=== PATIENT | female | born 1995 | race Caucasian/White ===

== ENCOUNTER 2016-09-28 07:17 | Inpatient (IN) | payer MEDICAID ==
[2016-09-28] MEDS ORDERED: Misoprostol 50 MCG (1/2 of 100 MCG) Tab ONE (08:15)
[2016-09-28] MEDS ORDERED: Lactated Ringers 1,000 ML IV SCH (08:15)
[2016-09-28] MEDS ORDERED: Misoprostol 50 MCG (1/2 of 100 MCG) Tab VAG ONE (08:22)
[2016-09-28] MEDS ORDERED: Acetaminophen 325 MG Tab PO PRN (08:29)
[2016-09-28] MEDS ORDERED: Ondansetron 4 MG Tab.DIS PO PRN (08:29)
[2016-09-28] MEDS ORDERED: fentaNYL 100 MCG/2 ML SDV IVPUSH PRN (08:29)
[2016-09-28] MEDS ORDERED: Sodium Chloride 0.9% 10 ML Syringe FLUSH PRN (08:29)
--- NOTE | 2016-09-28 08:41 | PCM.LDHP ---
L&D History of Present Illness - General Date of Service: 09/28/16 (induction) Admit Problem/Dx: Patient Status Order with Admit Dx/Problem 09/28/16 08:29 Patient Status [ADT] Routine Admission Diagnosis/Problem Admission Diagnosis/Problem Source of Information: Patient History Limitations: Reports: No Limitations - History of Present Illness Introduction:: This who is 40 1/7 weeks gestation presents for planned induction at 40 weeks. cervical exam /-2 bloody show. Contractions present but not uncomfortable. 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: : 2 Para: 1 LMP (Approximate): (09/27/16) Social & Family History - Family History Family Medical History: Noncontributory - Tobacco Use Smoking Status *Q: Never Smoker Second Hand Smoke Exposure: No - Caffeine Use Caffeine Use: Reports: Coffee - Alcohol Use Days Per Week of Alcohol Use: 0 - Recreational Drug Use Recreational Drug Use: No H&P Review of Systems - Review of Systems: Review Of Systems: See Below General: Reports: No Symptoms HEENT: Reports: No Symptoms Pulmonary: Reports: No Symptoms Cardiovascular: Reports: No Symptoms Gastrointestinal: Reports: No Symptoms Genitourinary: Reports: No Symptoms Musculoskeletal: Reports: No Symptoms Skin: Reports: No Symptoms Psychiatric: Reports: No Symptoms Neurological: Reports: No Symptoms Hematologic/Lymphatic: Reports: No Symptoms Immunologic: Reports: No Symptoms L&D Exam - Exam Exam: See Below - Vital Signs Vital Signs: Last Vital Signs Temp 99.2 F 09/28/16 07:45 Pulse 84 09/28/16 08:15 Resp 18 09/28/16 08:15 BP 108/66 09/28/16 08:15 Pulse Ox 94 L 09/28/16 08:15 Weight: 155 lb - OB Specific Contraction Duration (sec): 30-60 Contraction Frequency (min): irritability Contraction Intensity: Mild Heart Rate (FHR) Variability: Moderate (6-25 bmp) Presentation: Vertex Estimated Weight: 7 lbs - Mora Score Mora Score Cervix Position: Midposition Mora Score Consistency: Soft Mora Score Effacement: 51-70% Mora Score Dilation: 1-2 cm Mora Score Infant's Station: -2 Mora Score Total: 7 - Exam General: Alert, Oriented HEENT: PERRLA, Hearing Intact, Mucosa Moist & [place], Pupils Equal Neck: Supple, Trachea Midline Lungs: Clear to Auscultation, Normal Respiratory Effort Cardiovascular: Regular Rate, Regular Rhythm Abdomen: Normal Bowel Sounds, Soft, Pelvis Stable Rectal Exam: Normal Exam Genitourinary: Normal external exam, Cervical dilitation, Enlarged uterus Back Exam: Normal Inspection Extremities: Normal Inspection Skin: Warm, Dry, Intact Neurological: Cranial Nerves Intact, Reflexes Equal Bilateral Psychiatric: Alert, Normal Affect, Normal Mood - Patient Data Lab Results Last 24 hrs: Laboratory Results - last 24 hr 09/28/16 09/28/16 Range/Units 08:05 08:14 WBC 6.8 (4.5-11.0) K/uL RBC 3.93 (3.30-5.50) M/uL Hgb 9.1 L (12.0-15.0) g/dL Hct 30.0 L (36.0-48.0) % MCV 76 L (80-98) fL MCH 23 L (27-31) pg MCHC 30 L (32-36) % Plt Count 273 (150-400) K/uL Urine Opiates Screen Negative (NEGATIVE) Ur Oxycodone Screen Negative (NEGATIVE) Urine Methadone Screen Negative (NEGATIVE) Ur Propoxyphene Screen Negative (NEGATIVE) Ur Barbiturates Screen Negative (NEGATIVE) Ur Tricyclics Screen Negative (NEGATIVE) Ur Phencyclidine Scrn Negative (NEGATIVE) Ur Amphetamine Screen Negative (NEGATIVE) U Methamphetamines Scrn Negative (NEGATIVE) Urine MDMA Screen Negative (NEGATIVE) U Benzodiazepines Scrn Negative (NEGATIVE) U Cocaine Metab Screen Negative (NEGATIVE) U Marijuana (THC) Screen Negative (NEGATIVE) Result Diagrams: 09/28/16 08:14 - Problem List (1) Elective induction of labor planned SNOMED Code(s): 304809381 ICD Code: [id number] - Status: Acute Current Visit: Yes (2) SNOMED Code(s): 36087532 ICD Code: Z33.1 - STATE, INCIDENTAL Status: Acute Current Visit : Yes Qualifiers: Weeks of gestation: 40 weeks Qualified Code(s): Z3A.40 - 40 weeks gestation of Problem List Initiated/Reviewed/Updated: Yes Orders Last 24hrs: Active Orders 24 hr Category Date Time Status Patient Status [ADT] Routine ADT 09/28/16 08:29 Ordered Antiembolic Devices [RC] .Routine Care 09/28/16 08:32 Ordered Communication Order [RC] ASDIRECTED Care 09/28/16 08:29 Ordered Heart Tones [RC] PER UNIT ROUTINE Care 09/28/16 08:29 Ordered May Shower [RC] ASDIRECTED Care 09/28/16 08:29 Ordered Notify Provider Vital Signs [RC] PRN Care 09/28/16 08:29 Ordered Notify Provider [RC] PRN Care 09/28/16 08:29 Ordered Up ad Catia [RC] ASDIRECTED Care 09/28/16 08:29 Ordered VTE/DVT Education [RC] Click to Edit Care 09/28/16 08:32 Ordered Vital Signs [RC] PER UNIT ROUTINE Care 09/28/16 08:29 Ordered Acetaminophen [Tylenol] Med 09/28/16 08:29 Ordered 650 mg PO Q4H PRN Lactated Ringers [Ringers, Lactated] 1,000 ml Med 09/28/16 08:15 Active IV BOLUS Ondansetron [Zofran ODT] Med 09/28/16 08:29 Ordered 4 mg PO Q4H PRN Oxytocin/Normal Saline [Pitocin in NS 20 Units/1,000 ML Med 09/28/16 08:45 Ordered ] 1,000 ml IV TITRATE Sodium Chloride 0.9% [Saline Flush] Med 09/28/16 08:29 Ordered 10 ml FLUSH ASDIRECTED PRN fentaNYL [Sublimaze] Med 09/28/16 08:29 Ordered 100 mcg IVPUSH Q1H PRN DVT/VTE Prophylaxis Reflex [OM.PC] Routine Oth 09/28/16 08:29 Ordered Saline Lock Insert [OM.PC] Routine Oth 09/28/16 08:29 Ordered Resuscitation Status Routine Resus Stat 09/28/16 08:29 Ordered Medication Orders Acetaminophen (Tylenol) 650 mg PO Q4H PRN PRN Reason: Pain (Mild 1-3) and fever Fentanyl (Sublimaze) 100 mcg IVPUSH Q1H PRN PRN Reason: Pain (moderate 4-6) Lactated Ringer's (Ringers, Lactated) 1,000 mls @ 999 mls/hr IV BOLUS KELLIE Last Admin: 09/28/16 08:25 Dose: 999 mls/hr Oxytocin/Sodium Chloride (Pitocin In Ns 20 Units/1,000 Ml) 1,000 mls @ 6 mls/ hr IV TITRATE KELLIE; 2 MUNITS/MIN PRN Reason: Protocol Ondansetron HCl (Zofran Odt) 4 mg PO Q4H PRN PRN Reason: Nausea/Vomiting Sodium Chloride (Saline Flush) 10 ml FLUSH ASDIRECTED PRN PRN Reason: Keep Vein Open Assessment/Plan Comment:: 21 year old who is 40 1/7 cat one strip favorable cervix Misoprostol 50 MCG vaginally monitor for active labor up and about august far light meals
--- NOTE | 2016-09-28 12:05 | PCM.PNLD ---
Labor Progress Note - VS & Meds Vital Signs: Last Vital Signs Temp 99.2 F 09/28/16 07:45 Pulse 78 09/28/16 09:15 Resp 18 09/28/16 09:15 BP 101/71 09/28/16 08:45 Pulse Ox 95 09/28/16 09:15 Active Medications: Current Medications Acetaminophen (Tylenol) 650 mg PO Q4H PRN PRN Reason: Pain (Mild 1-3) and fever Fentanyl (Sublimaze) 100 mcg IVPUSH Q1H PRN PRN Reason: Pain (moderate 4-6) Lactated Ringer's (Ringers, Lactated) 1,000 mls @ 999 mls/hr IV BOLUS KELLIE Last Admin: 09/28/16 08:25 Dose: 999 mls/hr Oxytocin/Sodium Chloride (Pitocin In Ns 20 Units/1,000 Ml) 20 unit in 1,000 mls @ 6 mls/hr IV TITRATE KELLIE; 2 MUNITS/MIN PRN Reason: Protocol Ondansetron HCl (Zofran Odt) 4 mg PO Q4H PRN PRN Reason: Nausea/Vomiting Sodium Chloride (Saline Flush) 10 ml FLUSH ASDIRECTED PRN PRN Reason: Keep Vein Open Discontinued Medications Misoprostol (Cytotec) Confirm Administered Dose 50 mcg .ROUTE .STK-MED ONE Stop: 09/28/16 08:16 Last Admin: 09/28/16 08:25 Dose: 50 mcg Misoprostol (Cytotec) 50 mcg VAG ONETIME ONE Stop: 09/28/16 08:23 Last Admin: 09/28/16 10:00 Dose: Not Given - Uterine Contractions Uterine Monitoring Mode: External [place] Contraction Frequency (min): 1-1.5 Contraction Duration (sec): 30-50 Contraction Intensity: Moderate Uterine Resting Tone: Soft - Monitoring Monitor Mode: Doppler/Auscultation Heart Rate (FHR) Baseline: 145 Heart Rate (FHR) Variability: Moderate (6-25 bmp) Accelerations: Present, 15x15 Decelerations: None Strip Review: Category I - Vaginal Exam Dilation (cm): 4-5 Effacement (Percent): 80 Station: 0 Cervical Position: Anterior Sterile Vaginal Exam Performed By: Demetra Jade Vaginal Exam Comment: AROM meconium - Labor Progress (Free Text) Labor Progress: Nice progress since this morning. Active labor epidural at 6 cm
[2016-09-28] MEDS ORDERED: Lidocaine 1% 50 ML MDV ONE (12:34)
[2016-09-28] MEDS ORDERED: Oxytocin 10 Units/1 ML SDV ONE (12:34)
[2016-09-28] MEDS ORDERED: Naloxone 0.4 MG/ML SDV ONE (12:34)
[2016-09-28] MEDS ORDERED: Docusate Sodium 100 MG Cap PO PRN (13:57)
--- NOTE | 2016-09-28 14:13 | PCM.DEL ---
L & D Note - General Info Date of Service: 09/28/16 (Delivery) Mother's Due Date: 09/27/16 - Delivery Note Labor: spontaneous Cervical Ripening Method: Misoprostil Delivery Outcome: Livebirth Infant Delivery Method: Spontaneous Vaginal Delivery Delivery Mode: Spontaneous Presentation: Vertex Nuchal Cord: None Anesthesia Type: None Amniotic Fluid Description: Meconium stained Episiotomy Type: None Laceration: none Placenta: intact, spontaneous Cord: 3 vessels Resuscitation Needed: No : Bulb Syringe, Stimulated, Warmed Provider: Demetra Jade Score 1 min: 8 Score 5 min: 9 Score 10 min: 9 Post Delivery Events: Shoulder Dystocia Second Stage Interventions: Reports: Encouragement Given, Pushing Effectively, Pushing Involuntarily, Pushing, McRobert's Position Delivery Comments (Free Text/Narrative):: This 21 year old G2 Now P2 40 1/7 weeks delivered at [address] in [facility] with shoulder dystoica which was relieved with Mc Kevan's and supra pubic pressure. No nuchal cord, three vessel cord. The placenta was expressed spontaneously intact. Active management of the third stage was used. No tears or repairs needed. No lacerations of the perineum, vagina, rectum or cervix. EBL 100 Mother and baby to nursery and post in stable condition Induction Criteria - Mora Score Mora Score Dilation: 1-2 cm Mora Score Effacement: 60-70% Mora Score Infant's Station: -1 ,0 Mora Score Consistency: Soft Mora Score Cervix Position: Midposition Mora Score Total: 8 Mora Score Presenting Part: Reports: Cephalic - Induction Gestational Age >/= 39 wks: Yes Estimated pelvis: Reports: Adequate Reassuring monitoring strip: Yes Absence of tachy systole: Yes - Augmentation Estimated Pelvis: Reports: Adequate weight estimated:: Reports: AGA - General Info Date of Service: 09/28/16 (delivery) Admission Dx/Problem (Free Text): Patient Status Order with Admit Dx/Problem 09/28/16 08:29 Patient Status [ADT] Routine Admission Diagnosis/Problem Admission Diagnosis/Problem Functional Status: Reports: pain controlled - Review of Systems General: Reports: No Symptoms HEENT: Reports: no symptoms Pulmonary: Reports: no symptoms Cardiovascular: Reports: No Symptoms Gastrointestinal: Reports: No symptoms Genitourinary: Reports: no symptoms Musculoskeletal: Reports: no symptoms Skin: Reports: no symptoms Neurological: Reports: No Symptoms Psychiatric: Reports: no symptoms - Patient Data Vitals - most recent: Last Vital Signs Temp 99.1 F 09/28/16 12:25 Pulse 80 09/28/16 12:25 Resp 18 09/28/16 12:25 BP 117/67 09/28/16 12:25 Pulse Ox 95 09/28/16 12:25 Weight - most recent: 155 lb I&O - last 24 hours: Intake & Output 09/27/16 09/28/16 09/28/16 22:59 06:59 14:59 Intake Total 500 Balance 500 Lab Results last 24 hrs: Laboratory Results - last 24 hr 09/28/16 09/28/16 09/28/16 Range/Units 08:05 08:14 08:36 WBC 6.8 (4.5-11.0) K/uL RBC 3.93 (3.30-5.50) M/uL Hgb 9.1 L (12.0-15.0) g/dL Hct 30.0 L (36.0-48.0) % MCV 76 L (80-98) fL MCH 23 L (27-31) pg MCHC 30 L (32-36) % Plt Count 273 (150-400) K/uL Urine Color Yellow Urine Appearance Cloudy Urine pH 8.0 (4.5-8.0) Ur Specific [place] 1.015 (1.008-1.030) Urine Protein Negative (NEGATIVE) mg/dL Urine Glucose (UA) Normal (NEGATIVE) mg/dL Urine Ketones Negative (NEGATIVE) mg/dL Urine Occult Blood Negative (NEGATIVE) Urine Nitrite Negative (NEGATIVE) Urine Bilirubin Negative (NEGATIVE) Urine Urobilinogen Normal (NORMAL) mg/dL Ur Leukocyte Esterase Large (NEGATIVE) Urine RBC 0-5 (0-5) Urine WBC 30-40 H (0-5) Ur Epithelial Cells Many Amorphous Sediment Not seen Urine Bacteria Many Urine Mucus Not seen Urine Opiates Screen Negative (NEGATIVE) Ur Oxycodone Screen Negative (NEGATIVE) Urine Methadone Screen Negative (NEGATIVE) Ur Propoxyphene Screen Negative (NEGATIVE) Ur Barbiturates Screen Negative (NEGATIVE) Ur Tricyclics Screen Negative (NEGATIVE) Ur Phencyclidine Scrn Negative (NEGATIVE) Ur Amphetamine Screen Negative (NEGATIVE) U Methamphetamines Scrn Negative (NEGATIVE) Urine MDMA Screen Negative (NEGATIVE) U Benzodiazepines Scrn Negative (NEGATIVE) U Cocaine Metab Screen Negative (NEGATIVE) U Marijuana (THC) Screen Negative (NEGATIVE) Med Orders - Current: Current Medications Acetaminophen (Tylenol) 650 mg PO Q4H PRN PRN Reason: Pain (Mild 1-3) and fever Docusate Sodium (Colace) 100 mg PO BID PRN PRN Reason: Constipation Fentanyl (Sublimaze) 100 mcg IVPUSH Q1H PRN PRN Reason: Pain (moderate 4-6) Lactated Ringer's (Ringers, Lactated) 1,000 mls @ 999 mls/hr IV BOLUS KELLIE Last Admin: 09/28/16 08:25 Dose: 999 mls/hr Oxytocin/Sodium Chloride (Pitocin In Ns 20 Units/1,000 Ml) 20 unit in 1,000 mls @ 6 mls/hr IV TITRATE KELLIE; 2 MUNITS/MIN PRN Reason: Protocol Ondansetron HCl (Zofran Odt) 4 mg PO Q4H PRN PRN Reason: Nausea/Vomiting Sodium Chloride (Saline Flush) 10 ml FLUSH ASDIRECTED PRN PRN Reason: Keep Vein Open Discontinued Medications Oxytocin/Sodium Chloride (Pitocin In Ns 20 Units/1,000 Ml) Confirm Administered Dose 20 unit in 1,000 mls @ as directed .ROUTE .STK-MED ONE Stop: 09/28/16 12:36 Last Admin: 09/28/16 12:40 Dose: Not Given Lidocaine HCl (Xylocaine 1%) Confirm Administered Dose 100 ml .ROUTE .STK-MED ONE Stop: 09/28/16 12:35 Misoprostol (Cytotec) Confirm Administered Dose 50 mcg .ROUTE .STK-MED ONE Stop: 09/28/16 08:16 Last Admin: 09/28/16 08:25 Dose: 50 mcg Misoprostol (Cytotec) 50 mcg VAG ONETIME ONE Stop: 09/28/16 08:23 Last Admin: 09/28/16 10:00 Dose: Not Given Naloxone HCl (Narcan) Confirm Administered Dose 0.4 mg .ROUTE .STK-MED ONE Stop: 09/28/16 12:35 Oxytocin (Pitocin) Confirm Administered Dose 10 unit .ROUTE .STK-MED ONE Stop: 09/28/16 12:35 - Exam General: alert, oriented HEENT: Pupils equal, Pupils reactive, EOMI, Mucous membr. moist/pink Neck: supple Lungs: Clear to auscultation, Normal respiratory effort Cardiovascular: Regular Rate, Regular Rhythm Abdomen: bowel sounds present, soft, no tenderness, no distension (Female) Exam: Normal External Exam, Normal Speculum Exam, Normal Bimanual Exam, Enlarged Uterus, Vaginal Bleeding Back Exam: Normal Inspection, Full Range of Motion Extremities: no edema Skin: warm, dry, intact Wound/Incisions: healing well Neurological: no new focal deficit Psy/Mental Status: alert, normal affect, normal mood - Problem List & Annotations (1) Elective induction of labor planned SNOMED Code(s): 785400332 Code(s): FDQ4199 - Status: Acute Current Visit: Yes (2) SNOMED Code(s): 64283721 Code(s): Z33.1 - STATE, INCIDENTAL Status: Acute Current Visit: Yes Qualifiers: Weeks of gestation: 40 weeks Qualified Code(s): Z3A.40 - 40 weeks gestation of (3) Vaginal delivery SNOMED Code(s): 223709664 Code(s): O80 - ENCOUNTER FOR FULL-TERM UNCOMPLICATED DELIVERY Status: Acute Current Visit: Yes (4) Meconium staining SNOMED Code(s): 380972567, 445889843 Code(s): P96.83 - MECONIUM STAINING Status: Acute Current Visit: Yes - Problem List Review Problem List Initiated/Reviewed/Updated: Yes - My Orders Last 24 Hours: My Active Orders 09/28/16 08:29 Communication Order [RC] ASDIRECTED May Shower [RC] ASDIRECTED Notify Provider Vital Signs [RC] PRN Notify Provider [RC] PRN Up ad Catia [RC] ASDIRECTED Vital Signs [RC] PER UNIT ROUTINE Acetaminophen [Tylenol] 650 mg PO Q4H PRN Ondansetron [Zofran ODT] 4 mg PO Q4H PRN Sodium Chloride 0.9% [Saline Flush] 10 ml FLUSH ASDIRECTED PRN fentaNYL [Sublimaze] 100 mcg IVPUSH Q1H PRN DVT/VTE Prophylaxis Reflex [OM.PC] Routine Saline Lock Insert [OM.PC] Routine Resuscitation Status Routine 09/28/16 08:32 Antiembolic Devices [RC] .Routine VTE/DVT Education [RC] Click to Edit 09/28/16 08:45 Oxytocin/Normal Saline [Pitocin in NS 20 Units/1,000 ML] 20 unit in 1,000 ml IV TITRATE 09/28/16 13:57 Patient Status [ADT] Routine Vital Signs [RC] PFP Docusate Sodium [Colace] 100 mg PO BID PRN Assess Uterine Involution [WOMSER] Per Unit Routine 09/28/16 13:58 Ice Therapy [OM.PC] Per Unit Routine Perineal Care [OM.PC] Per Unit Routine Peripheral IV Discontinue [OM.PC] Routine Sitz Bath [OM.PC] Per Unit Routine 09/28/16 Lunch Regular Diet [DIET] 09/29/16 05:11 CBC WITH AUTO DIFF [HEME] AM - Assessment Assessment:: 09/28/16 with shoulder dystocia, relieved with basic McRobert's and supra pubic pressure. active management of third stage healthy baby girl with meconium present, no resuscitation needed, she cried spontaneously. - Plan Plan:: 21 year old who is 40 1/ cat one strip favorable cervix Misoprostol 50 MCG vaginally monitor for active labor up and about may far light meals 09/28/16 Routine cares 24-48 hour stay
[2016-09-28] MEDS ORDERED: Acetaminophen/HYDROcodone 325-5 MG Tab PO PRN (15:40)
[2016-09-28] MEDS ORDERED: Ibuprofen 200 MG Tab, 24 Tab Bulk Bottle PO PRN (15:40)
--- NOTE | 2016-09-29 07:49 | PCM.PNPP ---
- General Info Date of Service: 09/29/16 Admission Dx/Problem (Free Text): Patient Status Order with Admit Dx/Problem 09/28/16 08:29 Patient Status [ADT] Routine Admission Diagnosis/Problem Admission Diagnosis/Problem Functional Status: Reports: pain controlled - Review of Systems General: Reports: No Symptoms HEENT: Reports: no symptoms Pulmonary: Reports: no symptoms Cardiovascular: Reports: No Symptoms Gastrointestinal: Reports: No symptoms Genitourinary: Reports: no symptoms Musculoskeletal: Reports: no symptoms Skin: Reports: no symptoms Neurological: Reports: No Symptoms Psychiatric: Reports: no symptoms - General Info Date of Service: 09/29/16 - Patient Data Vital Signs - most recent: Last Vital Signs Temp 36.5 C 09/29/16 07:00 Pulse 74 09/29/16 07:00 Resp 18 09/29/16 07:00 BP 95/67 09/29/16 07:00 Pulse Ox 96 09/29/16 07:00 Weight - most recent: 70.307 kg I&O - last 24 hours: Intake & Output 09/28/16 09/29/16 09/29/16 22:59 06:59 14:59 Intake Total 500 Balance 500 Lab Results - last 24 hrs: Laboratory Results - last 24 hr 09/28/16 09/28/16 09/28/16 Range/Units 08:05 08:14 08:36 WBC 6.8 (4.5-11.0) K/uL RBC 3.93 (3.30-5.50) M/uL Hgb 9.1 L (12.0-15.0) g/dL Hct 30.0 L (36.0-48.0) % MCV 76 L (80-98) fL MCH 23 L (27-31) pg MCHC 30 L (32-36) % Plt Count 273 (150-400) K/uL Neut % (Auto) (36-66) % Lymph % (Auto) (24-44) % [place] % (Auto) (2-6) % Eos % (Auto) (2-4) % Baso % (Auto) (0-1) % Urine Color Yellow Urine Appearance Cloudy Urine pH 8.0 (4.5-8.0) Ur Specific [place] 1.015 (1.008-1.030) Urine Protein Negative (NEGATIVE) mg/dL Urine Glucose (UA) Normal (NEGATIVE) mg/dL Urine Ketones Negative (NEGATIVE) mg/dL Urine Occult Blood Negative (NEGATIVE) Urine Nitrite Negative (NEGATIVE) Urine Bilirubin Negative (NEGATIVE) Urine Urobilinogen Normal (NORMAL) mg/dL Ur Leukocyte Esterase Large (NEGATIVE) Urine RBC 0-5 (0-5) Urine WBC 30-40 H (0-5) Ur Epithelial Cells Many Amorphous Sediment Not seen Urine Bacteria Many Urine Mucus Not seen Urine Opiates Screen Negative (NEGATIVE) Ur Oxycodone Screen Negative (NEGATIVE) Urine Methadone Screen Negative (NEGATIVE) Ur Propoxyphene Screen Negative (NEGATIVE) Ur Barbiturates Screen Negative (NEGATIVE) Ur Tricyclics Screen Negative (NEGATIVE) Ur Phencyclidine Scrn Negative (NEGATIVE) Ur Amphetamine Screen Negative (NEGATIVE) U Methamphetamines Scrn Negative (NEGATIVE) Urine MDMA Screen Negative (NEGATIVE) U Benzodiazepines Scrn Negative (NEGATIVE) U Cocaine Metab Screen Negative (NEGATIVE) U Marijuana (THC) Screen Negative (NEGATIVE) 09/29/16 Range/Units 06:04 WBC 11.9 H (4.5-11.0) K/uL RBC 3.83 (3.30-5.50) M/uL Hgb 8.8 L (12.0-15.0) g/dL Hct 29.2 L (36.0-48.0) % MCV 76 L (80-98) fL MCH 23 L (27-31) pg MCHC 30 L (32-36) % Plt Count 247 (150-400) K/uL Neut % (Auto) 74 H (36-66) % Lymph % (Auto) 18 L (24-44) % [place] % (Auto) 7 H (2-6) % Eos % (Auto) 0 L (2-4) % Baso % (Auto) 0 (0-1) % Urine Color Urine Appearance Urine pH (4.5-8.0) Ur Specific [place] (1.008-1.030) Urine Protein (NEGATIVE) mg/dL Urine Glucose (UA) (NEGATIVE) mg/dL Urine Ketones (NEGATIVE) mg/dL Urine Occult Blood (NEGATIVE) Urine Nitrite (NEGATIVE) Urine Bilirubin (NEGATIVE) Urine Urobilinogen (NORMAL) mg/dL Ur Leukocyte Esterase (NEGATIVE) Urine RBC (0-5) Urine WBC (0-5) Ur Epithelial Cells Amorphous Sediment Urine Bacteria Urine Mucus Urine Opiates Screen (NEGATIVE) Ur Oxycodone Screen (NEGATIVE) Urine Methadone Screen (NEGATIVE) Ur Propoxyphene Screen (NEGATIVE) Ur Barbiturates Screen (NEGATIVE) Ur Tricyclics Screen (NEGATIVE) Ur Phencyclidine Scrn (NEGATIVE) Ur Amphetamine Screen (NEGATIVE) U Methamphetamines Scrn (NEGATIVE) Urine MDMA Screen (NEGATIVE) U Benzodiazepines Scrn (NEGATIVE) U Cocaine Metab Screen (NEGATIVE) U Marijuana (THC) Screen (NEGATIVE) Med Orders - Current: Current Medications Acetaminophen (Tylenol) 650 mg PO Q4H PRN PRN Reason: Pain (Mild 1-3) and fever Last Admin: 09/28/16 15:19 Dose: 650 mg Hydrocodone Bitart/Acetaminophen ([place] 325-5 Mg) 1 tab PO Q8H PRN PRN Reason: Pain Docusate Sodium (Colace) 100 mg PO BID PRN PRN Reason: Constipation Fentanyl (Sublimaze) 100 mcg IVPUSH Q1H PRN PRN Reason: Pain (moderate 4-6) Lactated Ringer's (Ringers, Lactated) 1,000 mls @ 999 mls/hr IV BOLUS KELLIE Last Admin: 09/28/16 08:25 Dose: 999 mls/hr Oxytocin/Sodium Chloride (Pitocin In Ns 20 Units/1,000 Ml) 20 unit in 1,000 mls @ 6 mls/hr IV TITRATE KELLIE; 2 MUNITS/MIN PRN Reason: Protocol Ibuprofen (Motrin Bulk Bottle) 600 mg PO Q6H PRN PRN Reason: Pain Last Admin: 09/28/16 17:33 Dose: 1 bottle Ondansetron HCl (Zofran Odt) 4 mg PO Q4H PRN PRN Reason: Nausea/Vomiting Sodium Chloride (Saline Flush) 10 ml FLUSH ASDIRECTED PRN PRN Reason: Keep Vein Open Discontinued Medications Oxytocin/Sodium Chloride (Pitocin In Ns 20 Units/1,000 Ml) Confirm Administered Dose 20 unit in 1,000 mls @ as directed .ROUTE .STK-MED ONE Stop: 09/28/16 12:36 Last Admin: 09/28/16 12:40 Dose: Not Given Lidocaine HCl (Xylocaine 1%) Confirm Administered Dose 100 ml .ROUTE .STK-MED ONE Stop: 09/28/16 12:35 Last Admin: 09/28/16 15:18 Dose: Not Given Misoprostol (Cytotec) Confirm Administered Dose 50 mcg .ROUTE .STK-MED ONE Stop: 09/28/16 08:16 Last Admin: 09/28/16 08:25 Dose: 50 mcg Misoprostol (Cytotec) 50 mcg VAG ONETIME ONE Stop: 09/28/16 08:23 Last Admin: 09/28/16 10:00 Dose: Not Given Naloxone HCl (Narcan) Confirm Administered Dose 0.4 mg .ROUTE .STK-MED ONE Stop: 09/28/16 12:35 Last Admin: 09/28/16 15:18 Dose: Not Given Oxytocin (Pitocin) Confirm Administered Dose 10 unit .ROUTE .STK-MED ONE Stop: 09/28/16 12:35 Last Admin: 09/28/16 15:18 Dose: Not Given - Interaction Disposition, : at Bedside Infant Interaction: Holding Infant Feeding: Bottle Fed Infant Support Person: Mother - Recovery Exam Fundal Tone: Firm Fundal Level: At Umbilicus Fundal Placement: Midline Lochia Amount: Small Lochia Color: Rubra/Red Episiotomy/Laceration: None - Exam General: alert, oriented HEENT: Pupils equal Neck: supple Lungs: Clear to auscultation, Normal respiratory effort Cardiovascular: Regular Rate, Regular Rhythm Abdomen: bowel sounds present, soft, no tenderness, no distension Extremities: no edema Skin: warm, dry, intact Wound/Incisions: healing well Neurological: no new focal deficit Psy/Mental Status: alert, normal affect, normal mood - Problem List & Annotations (1) Vaginal delivery SNOMED Code(s): 576465805 Code(s): O80 - ENCOUNTER FOR FULL-TERM UNCOMPLICATED DELIVERY Status: Acute Current Visit: Yes - Problem List Review Problem List Initiated/Reviewed/Updated: Yes - My Orders Last 24 Hours: My Active Orders 09/28/16 08:15 Lactated Ringers [Ringers, Lactated] 1,000 ml IV BOLUS - Assessment Assessment:: 09/28/16 with shoulder dystocia, relieved with basic McRobert's and supra pubic pressure. active management of third stage healthy baby girl with meconium present, no resuscitation needed, she cried spontaneously. 09/29/2016 Normal Day One Vaginal Delivery no complications Bottlefeeding Bleeding decrease Fundus Firm Wants early discharge Hgb-8.8 down from 9.1 yesterday - Plan Plan:: 21 year old who is 40 1/7 cat one strip favorable cervix Misoprostol 50 MCG vaginally monitor for active labor up and about august light meals 09/28/16 Routine cares 24-48 hour stay 09/29/2016 Continue Routine Cares Continue to encourage iron rich diet, iron supplements, and prenatals Wants early discharge To see Demetra in 6 weeks for visit
[2016-09-29] MEDS ORDERED: Ferrous Sulfate 325 MG Tab PO SCH (08:00)
[2016-09-29 11:18] VITALS: BP 93/62
== END 2016-09-29 15:06 | disposition home or self-care (01) | DRG 775 ==
LOC: JP.OB 07:17 → OBSVTOIN 13:44 → JP.OB 13:44 → JP.MS 17:04
PROVIDERS: ADMIT Nurse Practitioner Family; ATTEND Nurse Practitioner Family
PROC: 10E0XZZ Delivery of Products of Conception, External Approach (ICD-10-PCS; principal; 2016-09-28)
PROC: 3E0P7GC Introduction of Other Therapeutic Substance into Female Reproductive, Via Natural or Artificial Opening (ICD-10-PCS; principal; 2016-09-28)
PROC: 3E033VJ Introduction of Other Hormone into Peripheral Vein, Percutaneous Approach (ICD-10-PCS; principal; 2016-09-28)
DX: O66.0 Obstructed labor due to shoulder dystocia (principal); O77.0 Labor and delivery complicated by meconium in amniotic fluid; Z3A.40 40 weeks gestation of pregnancy; Z37.0 Single live birth
CPT/HCPCS: 36415; 80305; 81001; 85025; 85027; A9270-GY; J7120

== ENCOUNTER 2018-12-26 01:07 | Inpatient (IN) | payer MEDICAID ==
[2018-12-26] MEDS ORDERED: Acetaminophen 325 MG Tab PO PRN (02:07)
[2018-12-26] MEDS ORDERED: Sodium Chloride 0.9% 10 ML Syringe FLUSH PRN ×2 (02:07→03:51)
--- NOTE | 2018-12-26 02:21 | PCM.LDHP ---
L&D History of Present Illness - General Date of Service: 12/26/18 (active labor) Admit Problem/Dx: Patient Status Order with Admit Dx/Problem 12/26/18 02:08 Patient Status [ADT] Routine Admission Diagnosis/Problem Admission Diagnosis/Problem Source of Information: Patient History Limitations: Reports: No Limitations - History of Present Illness Introduction:: This 23 year old presents in active labor at 40 weeks gestation. Her water broke as she was walking down the [place]igh. Large amount clear fluid. Contractions started around 2230 and progressed to super uncomfortable at midnight and they decided to come in. She has had adequate care and an uncomplicated . Nursing noted her to be dilated to 5 cm on admission. Labs: ABO A pos HIV neg GBS neg Rubella immune Timing/Duration: Reports: minutes: (1-3), getting worse Location, : Reports: Abdomen Quality: Reports: Pressure Severity: Moderate Improves with: Reports: Other (tub) Worsens with: Reports: Movement Associated Symptoms: Reports: vaginal fluid - Related Data Allergies/Adverse Reactions: Allergies Allergy/AdvReac Type Severity Reaction Status Date / Time No Known Allergies Allergy Verified 03/13/14 16:50 Home Medications: Home Meds Pnv No.122/Iron/Folic Acid [ Multi Tablet] 1 tab PO DAILY 09/28/16 [ History] Past Medical History HEENT History: Reports: None 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 LMP (Approximate): (RUBY 12/26/18) Other OB/BYN History: - Past Surgical History HEENT Surgical History: Reports: None Social & Family History - Family History Family Medical History: Noncontributory - Tobacco Use Smoking Status *Q: Never Smoker Second Hand Smoke Exposure: No - Caffeine Use Caffeine Use: Reports: Coffee - Recreational Drug Use Recreational Drug Use: No H&P Review of Systems - Review of Systems: Review Of Systems: See Below General: Reports: No Symptoms HEENT: Reports: No Symptoms Pulmonary: Reports: No Symptoms Cardiovascular: Reports: No Symptoms Gastrointestinal: Reports: No Symptoms Genitourinary: Reports: No Symptoms Musculoskeletal: Reports: No Symptoms Skin: Reports: No Symptoms Psychiatric: Reports: No Symptoms Neurological: Reports: No Symptoms Hematologic/Lymphatic: Reports: No Symptoms Immunologic: Reports: No Symptoms L&D Exam - Exam Exam: See Below - Vital Signs Vital Signs: Last Vital Signs Temp 97.9 F 12/26/18 01:14 Pulse 127 H 12/26/18 01:14 Resp 16 12/26/18 01:14 BP 116/64 12/26/18 01:14 Pulse Ox 97 12/26/18 01:14 Weight: 149 lb - OB Specific Contraction Frequency (min): 1-3 Contraction Intensity: Strong Movement: Active Heart Tones: Present Heart Tones per Min: 130 Heart Rate (FHR) Variability: Moderate (6-25 bmp) Presentation: Vertex Estimated Weight: 8-9 pounds - Mora Score Mora Score Cervix Position: Midposition Mora Score Consistency: Soft Mora Score Effacement: 51-70% Mora Score Dilation: > 5 cm Mora Score 's Station: -1 ,0 Mora Score Total: 10 - Exam General: Alert, Oriented HEENT: Mucosa Moist & [place], Pupils Reactive Neck: Supple Lungs: Normal Respiratory Effort Cardiovascular: Regular Rate, Regular Rhythm GI/Abdominal Exam: Soft Rectal Exam: Normal Exam Genitourinary: Cervical dilitation, Enlarged uterus, Vaginal discharge Back Exam: Normal Inspection, Full Range of Motion Extremities: No Pedal Edema, Normal Capillary Refill Skin: Warm, Dry Neurological: Cranial Nerves Intact, Reflexes Equal Bilateral Psychiatric: Alert, Normal Affect, Normal Mood - Patient Data Lab Results Last 24 hrs: Laboratory Results - last 24 hr 12/26/18 12/26/18 Range/Units 01:14 01:15 Urine Color Yellow (YELLOW) Urine Appearance Cloudy A (CLEAR) Urine pH 7.5 (5.0-8.0) Ur Specific [place] 1.020 (1.008-1.030) Urine Protein 100 H (NEGATIVE) mg/dL Urine Glucose (UA) Negative (NEGATIVE) mg/dL Urine Ketones Trace H (NEGATIVE) mg/dL Urine Occult Blood Small H (NEGATIVE) Urine Nitrite Negative (NEGATIVE) Urine Bilirubin Negative (NEGATIVE) Urine Urobilinogen 0.2 (0.2-1.0) EU/dL Ur Leukocyte Esterase Trace H (NEGATIVE) Urine RBC 0-5 (0-5) Urine WBC 5-10 H (0-5) Ur Epithelial Cells Many Amorphous Sediment Not seen Urine Bacteria Many Urine Mucus Not seen Urine Opiates Screen Negative (NEGATIVE) Ur Oxycodone Screen Negative (NEGATIVE) Urine Methadone Screen Negative (NEGATIVE) Ur Propoxyphene Screen Negative (NEGATIVE) Ur Barbiturates Screen Negative (NEGATIVE) Ur Tricyclics Screen Negative (NEGATIVE) Ur Phencyclidine Scrn Negative (NEGATIVE) Ur Amphetamine Screen Negative (NEGATIVE) U Methamphetamines Scrn Negative (NEGATIVE) Urine MDMA Screen Negative (NEGATIVE) U Benzodiazepines Scrn Negative (NEGATIVE) U Cocaine Metab Screen Negative (NEGATIVE) U Marijuana (THC) Screen Negative (NEGATIVE) - Problem List (1) Vaginal delivery SNOMED Code(s): 114154658 ICD Code: O80 - ENCOUNTER FOR FULL-TERM UNCOMPLICATED DELIVERY Status: Acute Current Visit: No (2) SNOMED Code(s): 31713420 ICD Code: Z33.1 - STATE, INCIDENTAL Status: Acute Current Visit : Yes Qualifiers: Weeks of gestation: 40 weeks Qualified Code(s): Z3A.40 - 40 weeks gestation of Problem List Initiated/Reviewed/Updated: Yes Orders Last 24hrs: Active Orders 24 hr Category Date Time Status Patient Status [ADT] Routine ADT 12/26/18 02:08 Ordered Ambulate [RC] PER UNIT ROUTINE Care 12/26/18 02:07 Ordered Antiembolic Devices [RC] .Routine Care 12/26/18 02:11 Ordered Communication Order [RC] ASDIRECTED Care 12/26/18 02:08 Ordered Heart Tones [RC] PER UNIT ROUTINE Care 12/26/18 02:08 Ordered Non Stress Test [RC] Click to Edit Care 12/26/18 02:08 Ordered May Shower [RC] ASDIRECTED Care 12/26/18 02:07 Ordered Notify Provider Vital Signs [RC] PRN Care 12/26/18 02:07 Ordered Notify Provider [RC] PRN Care 12/26/18 02:08 Ordered Up ad Catia [RC] ASDIRECTED Care 12/26/18 02:07 Ordered VTE/DVT Education [RC] Click to Edit Care 12/26/18 02:11 Ordered Vital Signs [RC] PER UNIT ROUTINE Care 12/26/18 02:08 Ordered Regular Diet [DIET] Diet 12/26/18 Breakfast Ordered CBC W/O DIFF,HEMOGRAM [HEME] Routine Lab 12/26/18 02:07 Ordered Acetaminophen [Tylenol] Med 12/26/18 02:07 Ordered 650 mg PO Q4H PRN Sodium Chloride 0.9% [Saline Flush] Med 12/26/18 02:07 Ordered 10 ml FLUSH ASDIRECTED PRN fentaNYL [Sublimaze] Med 12/26/18 02:07 Ordered 100 mcg IVPUSH Q1H PRN DVT/VTE Prophylaxis Reflex [OM.PC] Routine Oth 12/26/18 02:07 Ordered Saline Lock Insert [OM.PC] Routine Oth 12/26/18 02:08 Ordered Resuscitation Status Routine Resus Stat 12/26/18 02:07 Ordered Medication Orders Acetaminophen (Tylenol) 650 mg PO Q4H PRN PRN Reason: Pain (Mild 1-3) and fever Fentanyl (Sublimaze) 100 mcg IVPUSH Q1H PRN PRN Reason: Pain (moderate 4-6) Sodium Chloride (Saline Flush) 10 ml FLUSH ASDIRECTED PRN PRN Reason: Keep Vein Open Assessment/Plan Comment:: 12/26/18 23 yr old 40 weeks active labor with SROM clear fluid. GBS neg Cat one strip Plan: bath for pain management anticipate a vaginal delivery
[2018-12-26] MEDS: fentaNYL 100 MCG/2 ML SDV IVPUSH PRN ×2 (03:45→05:05)
[2018-12-26] MEDS ORDERED: ePHEDrine 50 MG/ML SDV IVPUSH PRN (03:51)
[2018-12-26] MEDS ORDERED: diphenhydrAMINE 50 MG/ML SDV IVPUSH PRN ×2 (03:51)
[2018-12-26] MEDS ORDERED: Naloxone 0.4 MG/ML SDV IVPUSH PRN (03:51)
[2018-12-26] MEDS ORDERED: Ropivacaine 200 MG in Premix Bag 1 BAG EPIDUR SCH (04:00)
[2018-12-26] MEDS ORDERED: Oxytocin 10 Units/1 ML SDV ONE (05:01)
[2018-12-26] MEDS ORDERED: Acetaminophen 325 MG Tab, 50 Tab Bulk Bottle PO PRN (05:18)
[2018-12-26] MEDS ORDERED: Benzocaine 20% Top Spray 56 GM Bottle TOP ONE (05:18)
[2018-12-26] MEDS ORDERED: Hydrocortisone 2.5% Crm 30 GM Tube TOP PRN (05:18)
[2018-12-26] MEDS ORDERED: Ibuprofen 200 MG Tab, 24 Tab Bulk Bottle PO PRN (05:18)
[2018-12-26] MEDS ORDERED: Witch Hazel Medicated Pads 100/Jar TOP ONE (05:18)
[2018-12-26] MEDS ORDERED: Lanolin 100% Cream 40 GM Tube TOP ONE (05:18)
--- NOTE | 2018-12-26 05:35 | PCM.DEL ---
L & D Note - General Info Date of Service: 12/26/18 (delivery) Mother's Due Date: 12/26/18 - Delivery Note Labor: Spontaneous Delivery Outcome: Livebirth Infant Delivery Method: Spontaneous Vaginal Delivery-Single Infant Delivery Mode: Spontaneous Presentation: Left Occiput Anterior (BANDAR) Nuchal Cord: None Anesthesia Type: None Amniotic Fluid Description: Clear Episiotomy Type: None Laceration: None Placenta: Intact, Spontaneous, Expressed Cord: 3 Vessels Estimated Blood Loss: 100 Resuscitation Needed: No [place]: Stimulated, Warmed, Happy Used Provider: Demetra Jade Score 1 min: 7 (2 color, 1 crying) Score 5 min: 9 (color) Post Delivery Events: Shoulder Dystocia Second Stage Interventions: Reports: Second Nurse Reviewed Heart Tones, Encouragement Given, Pushing Effectively, Pushing, McRobert's Position Delivery Comments (Free Text/Narrative):: This 23 year old G3 now P3 who is 40 weeks gestation delivered at 0454 via over an intact perineum a viable female in BANDAR position. There was a shoulder dystocia which was resolved with Chani and supra pubic pressure. Baby was placed on mother's abdomen where she was dried and stimulated. She cried spontaneously, Apgars of 7 and 9. Two for color and one for crying, then one for color. She transitioned well. Three vessel cord. THe placenta was expressed spontaneously intact. Active management of the third stage was used and delayed cord clamping as well. No lacerations of the the perineum, vagina, cervix or rectum were found. EBL 100cc Mother and baby to post in good condition. weight 8-15 first stage 5354-5379 Second stage 7609-5231 Third stage 5862-2950 - General Info Date of Service: 12/26/18 Admission Dx/Problem (Free Text): Patient Status Order with Admit Dx/Problem 12/26/18 02:08 Patient Status [ADT] Routine Admission Diagnosis/Problem Admission Diagnosis/Problem Functional Status: Reports: Pain Controlled - Review of Systems General: Reports: No Symptoms HEENT: Reports: No Symptoms Pulmonary: Reports: No Symptoms Cardiovascular: Reports: No Symptoms Gastrointestinal: Reports: No Symptoms Genitourinary: Reports: No Symptoms Musculoskeletal: Reports: No Symptoms Skin: Reports: No Symptoms Neurological: Reports: No Symptoms Psychiatric: Reports: No Symptoms - Patient Data Vitals - Most Recent: Last Vital Signs Temp 97.4 F 12/26/18 04:15 Pulse 127 H 12/26/18 01:14 Resp 16 12/26/18 04:15 BP 116/64 12/26/18 01:14 Pulse Ox 99 12/26/18 03:51 Weight - Most Recent: 149 lb Lab Results Last 24 Hours: Laboratory Results - last 24 hr 12/26/18 12/26/18 12/26/18 Range/Units 01:14 01:15 02:20 WBC 11.6 H (4.5-11.0) K/uL RBC 4.40 (3.30-5.50) M/uL Hgb 10.5 L (12.0-15.0) g/dL Hct 34.4 L (36.0-48.0) % MCV 78 L (80-98) fL MCH 24 L (27-31) pg MCHC 31 L (32-36) % Plt Count 260 (150-400) K/uL Urine Color Yellow (YELLOW) Urine Appearance Cloudy A (CLEAR) Urine pH 7.5 (5.0-8.0) Ur Specific [place] 1.020 (1.008-1.030) Urine Protein 100 H (NEGATIVE) mg/dL Urine Glucose (UA) Negative (NEGATIVE) mg/dL Urine Ketones Trace H (NEGATIVE) mg/dL Urine Occult Blood Small H (NEGATIVE) Urine Nitrite Negative (NEGATIVE) Urine Bilirubin Negative (NEGATIVE) Urine Urobilinogen 0.2 (0.2-1.0) EU/dL Ur Leukocyte Esterase Trace H (NEGATIVE) Urine RBC 0-5 (0-5) Urine WBC 5-10 H (0-5) Ur Epithelial Cells Many Amorphous Sediment Not seen Urine Bacteria Many Urine Mucus Not seen Urine Opiates Screen Negative (NEGATIVE) Ur Oxycodone Screen Negative (NEGATIVE) Urine Methadone Screen Negative (NEGATIVE) Ur Propoxyphene Screen Negative (NEGATIVE) Ur Barbiturates Screen Negative (NEGATIVE) Ur Tricyclics Screen Negative (NEGATIVE) Ur Phencyclidine Scrn Negative (NEGATIVE) Ur Amphetamine Screen Negative (NEGATIVE) U Methamphetamines Scrn Negative (NEGATIVE) Urine MDMA Screen Negative (NEGATIVE) U Benzodiazepines Scrn Negative (NEGATIVE) U Cocaine Metab Screen Negative (NEGATIVE) U Marijuana (THC) Screen Negative (NEGATIVE) Med Orders - Current: Current Medications Acetaminophen (Tylenol) 650 mg PO Q4H PRN PRN Reason: Pain (Mild 1-3) and fever Acetaminophen (Tylenol Bulk Bottle) 0 mg PO Q4H PRN PRN Reason: Pain Benzocaine (Qgks-F-Yfecayo 20% [place]) 0 gm TOP Q4H ONE Stop: 12/26/18 05:19 Diphenhydramine HCl (Benadryl) 25 mg IVPUSH Q6H PRN PRN Reason: Itching Diphenhydramine HCl (Benadryl) 50 mg IVPUSH Q6H PRN PRN Reason: Itching Emollient Ointment (Lansinoh Hpa) 1 gm TOP ASDIRECTED ONE Stop: 12/26/18 05:19 Ephedrine Sulfate (Ephedrine Sulfate) 10 mg IVPUSH ASDIRECTED PRN PRN Reason: Hypotension Fentanyl (Sublimaze) 100 mcg IVPUSH Q1H PRN PRN Reason: Pain (moderate 4-6) Last Admin: 12/26/18 05:05 Dose: 100 mcg Hydrocortisone (Proctozone-Hc 2.5% Crm) 1 gm TOP ASDIRECTED PRN PRN Reason: Itching Ropivacaine 200 mg/ Premix 100 mls @ 0 mls/hr EPIDUR ASDIRECTED KELLIE Ibuprofen (Motrin Bulk Bottle) 600 mg PO Q6H PRN PRN Reason: Pain Naloxone HCl (Narcan) 0.1 mg IVPUSH ASDIRECTED PRN PRN Reason: Oversedation Sodium Chloride (Saline Flush) 10 ml FLUSH ASDIRECTED PRN PRN Reason: Keep Vein Open Sodium Chloride (Saline Flush) 10 ml FLUSH ASDIRECTED PRN PRN Reason: Keep Vein Open Witch Savi (Tucks) 1 pad TOP ASDIRECTED ONE Stop: 12/26/18 05:19 Discontinued Medications Oxytocin/Sodium Chloride (Pitocin In Ns 20 Units/1,000 Ml) Confirm Administered Dose 20 unit in 1,000 mls @ as directed .ROUTE .STK-MED ONE Stop: 12/26/18 04:50 Oxytocin (Pitocin) Confirm Administered Dose 10 unit .ROUTE .STK-MED ONE Stop: 12/26/18 05:02 - Exam General: Alert, Oriented HEENT: Pupils Equal Neck: Supple Lungs: Normal Respiratory Effort Cardiovascular: Regular Rate, Regular Rhythm GI/Abdominal Exam: Soft, Non-Tender (Female) Exam: Normal External Exam, Cervical Dilatation, Enlarged Uterus, Vaginal Bleeding Back Exam: Normal Inspection, Full Range of Motion Extremities: Normal Range of Motion, No Pedal Edema, Normal Capillary Refill Skin: Warm, Dry, Intact Neurological: No New Focal Deficit Psy/Mental Status: Alert, Normal Affect, Normal Mood - Problem List & Annotations (1) Vaginal delivery SNOMED Code(s): 599637508 Code(s): O80 - ENCOUNTER FOR FULL-TERM UNCOMPLICATED DELIVERY Status: Acute Current Visit: Yes (2) SNOMED Code(s): 11658151 Code(s): Z33.1 - STATE, INCIDENTAL Status: Acute Current Visit: Yes Qualifiers: Weeks of gestation: 40 weeks Qualified Code(s): Z3A.40 - 40 weeks gestation of (3) Active labor SNOMED Code(s): 432402220 Code(s): XID8438 - Status: Acute Current Visit: Yes - Problem List Review Problem List Initiated/Reviewed/Updated: Yes - My Orders Last 24 Hours: My Active Orders 12/26/18 02:07 Ambulate [RC] PER UNIT ROUTINE May Shower [RC] ASDIRECTED Notify Provider Vital Signs [RC] PRN Up ad Catia [RC] ASDIRECTED Acetaminophen [Tylenol] 650 mg PO Q4H PRN Sodium Chloride 0.9% [Saline Flush] 10 ml FLUSH ASDIRECTED PRN fentaNYL [Sublimaze] 100 mcg IVPUSH Q1H PRN DVT/VTE Prophylaxis Reflex [OM.PC] Routine Resuscitation Status Routine 12/26/18 02:08 Communication Order [RC] ASDIRECTED Heart Tones [RC] PER UNIT ROUTINE Non Stress Test [RC] Click to Edit Notify Provider [RC] PRN Vital Signs [RC] PER UNIT ROUTINE Saline Lock Insert [OM.PC] Routine 12/26/18 02:11 Antiembolic Devices [RC] .Routine VTE/DVT Education [RC] Click to Edit 12/26/18 05:18 Patient Status [ADT] Routine Vital Signs [RC] PFP Acetaminophen [Tylenol Bulk Bottle] See Dose Instructions PO Q4H PRN Benzocaine [Zemi-R-Jimcgkl 20% [place]] See Dose Instructions TOP Q4H ONE Hydrocortisone [Proctozone-HC 2.5% Crm] 1 gm TOP ASDIRECTED PRN Ibuprofen [Motrin Bulk Bottle] 600 mg PO Q6H PRN Lanolin [Lansinoh HPA] 1 gm TOP ASDIRECTED ONE Witch Savi [Tucks] 1 pad TOP ASDIRECTED ONE Assess Lochia [WOMSER] Per Unit Routine Assess Uterine Involution [WOMSER] Per Unit Routine 12/26/18 05:19 Perineal Care [OM.PC] Per Unit Routine Peripheral IV Discontinue [OM.PC] Routine Sitz Bath [OM.PC] Per Unit Routine 12/26/18 Breakfast Regular Diet [DIET] 12/27/18 05:11 CBC WITH AUTO DIFF [HEME] AM - Assessment Assessment:: 12/26/18 23 year old 40 weeks gestation without complications - Plan Plan:: 12/26/18 23 yr old 40 weeks active labor with SROM clear fluid. GBS neg Cat one strip Plan: bath for pain management anticipate a vaginal delivery 12/26/18 Routine cares support HGB tomorrow AM 24-48 hour stay
--- NOTE | 2018-12-27 08:23 | PCM.PNPP ---
- General Info Date of Service: 12/27/18 Functional Status: Reports: Pain Controlled - Review of Systems General: Reports: No Symptoms HEENT: Reports: No Symptoms Pulmonary: Reports: No Symptoms Cardiovascular: Reports: No Symptoms Gastrointestinal: Reports: No Symptoms Genitourinary: Reports: No Symptoms Musculoskeletal: Reports: No Symptoms Skin: Reports: No Symptoms Neurological: Reports: No Symptoms Psychiatric: Reports: No Symptoms - General Info Date of Service: 12/27/18 - Patient Data Vital Signs - Most Recent: Last Vital Signs Temp 36.5 C 12/27/18 06:39 Pulse 64 12/27/18 06:39 Resp 16 12/27/18 06:39 BP 94/59 L 12/27/18 06:39 Pulse Ox 97 12/27/18 06:39 Weight - Most Recent: 67.585 kg I&O - Last 24 Hours: Intake & Output 12/26/18 12/27/18 12/27/18 22:59 06:59 14:59 Intake Total 700 Balance 700 Lab Results - Last 24 Hours: Laboratory Results - last 24 hr 12/27/18 Range/Units 05:50 WBC 12.1 H (4.5-11.0) K/uL RBC 3.96 (3.30-5.50) M/uL Hgb 9.6 L (12.0-15.0) g/dL Hct 31.4 L (36.0-48.0) % MCV 79 L (80-98) fL MCH 24 L (27-31) pg MCHC 31 L (32-36) % Plt Count 245 (150-400) K/uL Neut % (Auto) 70 H (36-66) % Lymph % (Auto) 22 L (24-44) % [place] % (Auto) 6 (2-6) % Eos % (Auto) 1 L (2-4) % Baso % (Auto) 0 (0-1) % Med Orders - Current: Current Medications Acetaminophen (Tylenol Bulk Bottle) 0 mg PO Q4H PRN PRN Reason: Pain Diphenhydramine HCl (Benadryl) 25 mg IVPUSH Q6H PRN PRN Reason: Itching Diphenhydramine HCl (Benadryl) 50 mg IVPUSH Q6H PRN PRN Reason: Itching Ephedrine Sulfate (Ephedrine Sulfate) 10 mg IVPUSH ASDIRECTED PRN PRN Reason: Hypotension Hydrocortisone (Proctozone-Hc 2.5% Crm) 1 gm TOP ASDIRECTED PRN PRN Reason: Itching Oxytocin/Sodium Chloride (Pitocin In Ns 20 Units/1,000 Ml) 20 unit in 1,000 mls @ 2,997 mls/hr IV TITRATE KELLIE; Protocol Last Titration: 12/26/18 05:45 Dose: Infused Ibuprofen (Motrin Bulk Bottle) 600 mg PO Q6H PRN PRN Reason: Pain Naloxone HCl (Narcan) 0.1 mg IVPUSH ASDIRECTED PRN PRN Reason: Oversedation Sodium Chloride (Saline Flush) 10 ml FLUSH ASDIRECTED PRN PRN Reason: Keep Vein Open Discontinued Medications Acetaminophen (Tylenol) 650 mg PO Q4H PRN PRN Reason: Pain (Mild 1-3) and fever Benzocaine (Svoj-R-Huxgppd 20% [place]) 0 gm TOP Q4H ONE Stop: 12/26/18 05:19 Last Admin: 12/26/18 07:44 Dose: 1 applic Emollient Ointment (Lansinoh Hpa) 1 gm TOP ASDIRECTED ONE Stop: 12/26/18 05:19 Last Admin: 12/26/18 07:44 Dose: 1 applic Fentanyl (Sublimaze) 100 mcg IVPUSH Q1H PRN PRN Reason: Pain (moderate 4-6) Last Admin: 12/26/18 05:05 Dose: 100 mcg Ropivacaine 200 mg/ Premix 100 mls @ 0 mls/hr EPIDUR ASDIRECTED [facility] Oxytocin/Sodium Chloride (Pitocin In Ns 20 Units/1,000 Ml) Confirm Administered Dose 20 unit in 1,000 mls @ as directed .ROUTE .STK-MED ONE Stop: 12/26/18 04:50 Last Admin: 12/26/18 05:42 Dose: Not Given Oxytocin/Sodium Chloride (Pitocin In Ns 20 Units/1,000 Ml) 20 unit in 1,000 mls @ 999 mls/hr IV ONETIME ONE; Protocol Stop: 12/26/18 06:39 Last Admin: 12/26/18 07:52 Dose: Not Given Oxytocin (Pitocin) Confirm Administered Dose 10 unit .ROUTE .STK-MED ONE Stop: 12/26/18 05:02 Last Admin: 12/26/18 05:42 Dose: Not Given Sodium Chloride (Saline Flush) 10 ml FLUSH ASDIRECTED PRN PRN Reason: Keep Vein Open Stalin Hou (Tucks) 1 pad TOP ASDIRECTED ONE Stop: 12/26/18 05:19 Last Admin: 12/26/18 07:45 Dose: 1 applic - Infant Interaction Disposition, : [place] in Room with Family Infant Interaction: Holding Infant Feeding: Attempted ; Nursed Fair/Poor Support Person: - Recovery Exam Fundal Tone: Firm Fundal Level: At Umbilicus Fundal Placement: Midline Lochia Amount: Small Lochia Color: Rubra/Red Perineum Description: Intact, Minimal Bruising/Swelling Episiotomy/Laceration: None Bladder Status: Voiding - Exam General: Alert, Oriented, Cooperative HEENT: Pupils Equal Neck: Supple Lungs: Clear to Auscultation, Normal Respiratory Effort Cardiovascular: Regular Rate, Regular Rhythm GI/Abdominal Exam: Normal Bowel Sounds, Soft, Non-Tender, No Organomegaly, No Distention, No Abnormal Bruit, No Mass, Pelvis Stable Extremities: Normal Inspection, Normal Range of Motion, Non-Tender, No Pedal Edema, Normal Capillary Refill Skin: Warm, Dry, Intact Neurological: No New Focal Deficit Psy/Mental Status: Alert, Normal Affect, Normal Mood - Problem List & Annotations (1) (infant) SNOMED Code(s): 690556422 Code(s): Z78.9 - OTHER SPECIFIED HEALTH STATUS Status: Acute Current Visit: Yes (2) Vaginal delivery SNOMED Code(s): 559372534 Code(s): O80 - ENCOUNTER FOR FULL-TERM UNCOMPLICATED DELIVERY Status: Acute Current Visit: Yes - Problem List Review Problem List Initiated/Reviewed/Updated: Yes - Assessment Assessment:: 12/26/18 23 year old 40 weeks gestation without complications 12/27/2018 day one Voiding and passing gas Fundus firm and bleeding decreasing fair Desires discharge today Happy with delivery - Plan Plan:: 12/26/18 23 yr old 40 weeks active labor with SROM clear fluid. GBS neg Cat one strip Plan: bath for pain management anticipate a vaginal delivery 12/26/18 Routine cares support HGB tomorrow AM 24-48 hour stay 12/27/2018 Continue routine cares Continue to support and encourage Encourage iron rich diet discharge home today To see Demetra in six weeks for visit
[2018-12-27 12:29] VITALS: BP 111/53; PULSE 76
== END 2018-12-27 12:45 | disposition home or self-care (01) | DRG 807 ==
LOC: JP.OBCHECK 01:07 → JP.OB 01:10 → OBSVTOIN 04:54 → JP.MS 10:29 → JP.OB 16:47 → JP.MS 17:25
PROVIDERS: ADMIT Nurse Practitioner Family; ATTEND Nurse Practitioner Family
PROC: 10E0XZZ Delivery of Products of Conception, External Approach (ICD-10-PCS; principal; 2018-12-26)
DX: O48.0 Post-term pregnancy (principal); Z37.0 Single live birth; O66.0 Obstructed labor due to shoulder dystocia; Z3A.40 40 weeks gestation of pregnancy
CPT/HCPCS: 36415; 59409; 80305-QW; 81001; 85025; 85027; 99211; A9270-GY; J2590; J3010